=== PATIENT | female | born 1995 | race Caucasian/White ===

== ENCOUNTER 2016-10-24 04:56 | Emergency (ER) | payer MEDICAID ==
[~2016-10-24] VITALS: Ht 170.2 cm; Wt 56.7 kg
[2016-10-24 05:11] VITALS: BP 110/58; PULSE 118; RESP 12; TEMP 100.2; O2SAT 96
[2016-10-24 05:30] VITALS: BP 110/58; PULSE 118; RESP 18; TEMP 100.2; O2SAT 96
[2016-10-24] MEDS ORDERED: ACETAMINOPHEN 325 MG TAB PO ONE (05:45)
[2016-10-24] MEDS ORDERED: SODIUM CHLOR 0.9% 1000 ML INJ 1,000 ML IV ONE (05:45)
--- NOTE | 2016-10-24 06:17 | RADRPT ---
EXAM DATE/TIME: 10/24/2016 05:41 [place] COMPARISON: No previous studies available for comparison. INDICATIONS : Fever, cough. MEDICAL HISTORY : None. SURGICAL HISTORY : None. ENCOUNTER: Initial ACUITY: 2 days PAIN SCORE: 0/10 LOCATION: Bilateral chest FINDINGS: PA and lateral views of the chest demonstrate the lungs to be symmetrically aerated without evidence of mass, infiltrate or effusion. The cardiomediastinal contours are unremarkable. Osseous structure s are intact. CONCLUSION: No acute disease. There is no evidence of pneumonia. Tod Frederick MD on October 24, 2016 at 6:15 Board Certified Radiologist. This report was verified electronically.
[2016-10-24 06:41] LABS: AUTOMATED NEUTROPHIL # 12.8 TH/MM3 (1.8-7.7); BASOPHIL % 0.3 % (0.0-2.0); EOSINOPHIL % 0.2 % (0.0-4.0); HEMATOCRIT 37.1 % (35.0-46.0); LYMPH % 4.4 % (9.0-44.0); LYMPHOCYTE # 0.6 TH/MM3 (1.0-4.8); MEAN CELL VOLUME 90.4 FL (80.0-100.0); MEAN CORPUSCULAR HEMOGLOBIN 30.3 PG (27.0-34.0); MEAN CORPUSCULAR HGB CONC 33.5 % (32.0-36.0); MONO % 5.8 % (0.0-8.0); NEUT % 89.3 % (16.0-70.0); PLATELET COUNT 148 TH/MM3 (150-450); RED CELL DISTRIBUTION WIDTH 12.1 % (11.6-17.2); WHITE BLOOD COUNT 14.2 TH/MM3 (4.0-11.0)
[2016-10-24 06:42] LABS: BLOOD, URINE NEG (NEG); GLUCOSE,URINE NEG (NEG); KETONE, URINE NEG (NEG); METHOD OF COLLECTION CLEAN CATCH; NITRITE,URINE NEG (NEG)
[2016-10-24 06:43] LABS: URINE COLOR STRAW (YELLW/STRAW)
[2016-10-24 06:46] LABS: COMMENT (UR) CULT NOT INDICATED; CULTURE IF INDICATED CULT NOT INDICATED; WBC, URINE 0-2 /hpf (0-5)
[2016-10-24 06:49] LABS: HEMO FLAGS DIFF FINAL
[2016-10-24] MEDS ORDERED: AMOX875T2 PO (06:55)
[2016-10-24 06:56] LABS: POTASSIUM 3.6 MEQ/L (3.5-5.1)
--- NOTE | 2016-10-24 06:56 | PD ---
HPI Chief Complaint: Fever Time Seen by Provider: 05:22 Travel History International Travel<30 days: No Contact w/Intl Traveler<30days: No Traveled to known affect area: No History of Present Illness HPI Patient is a 20-year-old female comes in complaining of fever and sore throat. She says it started last night. She has been taking ibuprofen, with some relief of her throat pain. She says she's had some slight nasal congestion and cough. She denies any shortness of breath. She denies any nausea or vomiting or abdominal pain. She has no medical problems. She denies drug use. [facility] Past Medical History Medical History: Denies Significant Hx Tetanus Vaccination: < 5 Years Influenza Vaccination: No ?: Unknown Past Surgical History Surgical History: No Previous Surgery Social History Alcohol Use: No Tobacco Use: No Substance Use: No Allergies-Medications (Allergen,Severity, Reaction): Coded Allergies: No Known Allergies (Unverified , 10/24/16) Reported Meds & Prescriptions Reported Meds & Active Scripts Active Amoxicillin-Clavulanate 875-125 mg Tab 875 Mg PO BID 10 Days not for use in CrCl <30 mL/minute Review of Systems Except as stated in HPI: all other systems reviewed are Neg General / Constitutional: Positive: Fever HENT: Positive: Sore Throat, Congestion, No: Headaches Cardiovascular: No: Chest Pain or Discomfort Respiratory: Positive: Cough, No: Shortness of Breath Gastrointestinal: No: Nausea, Vomiting, Abdominal Pain Genitourinary: No: Dysuria Musculoskeletal: No: Myalgias, Edema Skin: No Rash, No Change in Pigmentation Neurologic: No: Weakness, Dizziness Physical Exam Narrative GENERAL: Awake and alert, no acute distress. SKIN: Focused skin assessment warm/dry. HEAD: Atraumatic. Normocephalic. EYES: Pupils equal and round. No scleral icterus. No injection or drainage. ENT: No tonsillar swelling or exudates. Slight erythema of the posterior pharynx. Mucous membranes pink and moist. NECK: Trachea midline. No JVD. CARDIOVASCULAR: Tachycardia. No murmur appreciated. RESPIRATORY: No accessory muscle use. Clear to auscultation. Breath sounds equal bilaterally. GASTROINTESTINAL: Abdomen soft, non-tender, nondistended. MUSCULOSKELETAL: No obvious deformities. No clubbing. No cyanosis. No edema. NEUROLOGICAL: Awake and alert. No obvious cranial nerve deficits. Motor grossly within normal limits. Normal speech. PSYCHIATRIC: Appropriate mood and affect; insight and judgment normal. Data Data Last Documented VS Vital Signs Date Time Temp Pulse Resp B/P Pulse Ox O2 Delivery O2 Flow Rate FiO2 10/24/16 05:37 118 18 96 Room Air 10/24/16 05:30 100.2 110/58 Orders Iv Access Insert/Monitor (10/24/16 05:36) Complete Blood Count With Diff (10/24/16 05:36) Basic Metabolic Panel (Bmp) (10/24/16 05:36) Group A Rapid Strep Screen (10/24/16 05:36) Chest, Pa & Lat (10/24/16 ) Sodium Chlor 0.9% 1000 Ml Inj (Ns 1000 M (10/24/16 05:45) Urinalysis - C+S If Indicated (10/24/16 05:36) Ed Urine Pregnancytest Poc (10/24/16 05:36) Acetaminophen (Tylenol) (10/24/16 05:45) Strep Culture (Group A) (10/24/16 05:54) Labs Laboratory Tests Test 10/24/16 06:15 White Blood Count 14.2 TH/MM3 Red Blood Count 4.10 MIL/MM3 Hemoglobin 12.4 GM/DL Hematocrit 37.1 % Mean Corpuscular Volume 90.4 FL Mean Corpuscular Hemoglobin 30.3 PG Mean Corpuscular Hemoglobin 33.5 % Concent Red Cell Distribution Width 12.1 % Platelet Count 148 TH/MM3 Mean Platelet Volume 9.2 FL Neutrophils (%) (Auto) 89.3 % Lymphocytes (%) (Auto) 4.4 % Monocytes (%) (Auto) 5.8 % Eosinophils (%) (Auto) 0.2 % Basophils (%) (Auto) 0.3 % Neutrophils # (Auto) 12.8 TH/MM3 Lymphocytes # (Auto) 0.6 TH/MM3 Monocytes # (Auto) 0.8 TH/MM3 Eosinophils # (Auto) 0.0 TH/MM3 Basophils # (Auto) 0.0 TH/MM3 CBC Comment DIFF FINAL Differential Comment Urine Collection Type CLEAN CATCH Urine Color STRAW Urine Turbidity CLEAR Urine pH 6.0 Urine Specific Startex 1.002 Urine Protein NEG mg/dL Urine Glucose (UA) NEG mg/dL Urine Ketones NEG mg/dL Urine Occult Blood NEG Urine Nitrite NEG Urine Bilirubin NEG Urine Leukocyte Esterase NEG Urine WBC 0-2 /hpf Microscopic Urinalysis Comment CULT NOT INDICATED Sodium Level 140 MEQ/L Potassium Level 3.6 MEQ/L Chloride Level 108 MEQ/L Carbon Dioxide Level 24.6 MEQ/L Anion Gap 7 MEQ/L Blood Urea Nitrogen 16 MG/DL Creatinine 0.74 MG/DL Estimat Glomerular Filtration 99 ML/MIN Rate Random Glucose 110 MG/DL Calcium Level 8.7 MG/DL [facility] Medical Decision Making Medical Screen Exam Complete: Yes Emergency Medical Condition: Yes Medical Record Reviewed: Yes Differential Diagnosis URI versus strep pharyngitis versus UTI versus pneumonia Narrative Course Patient is a 20-year-old female who comes in complaining of fever and sore throat. Exam shows some erythema of the posterior pharynx. IV established, labs sent. Patient given IV fluids, Tylenol. Labs show a white blood cell count of 14.2. Urine is negative for UTI. Chest x -ray performed shows no evidence of pneumonia. Patient feels better after Tylenol and IVF. Vitals improved. Will be discharged with prescription for Augmentin for pharyngitis. Advised to follow up with her doctor. Advised to return to the ED as needed for any worsening symptoms. Diagnosis Primary Impression: Pharyngitis Qualified Code: J02.9 - Pharyngitis, unspecified etiology Patient Instructions: General Instructions, Pharyngitis (ED) Additional Instructions: Follow-up with her primary care doctor. Take all of your antibiotics. Take Tylenol or ibuprofen as needed for fever or pain. Return to the emergency department as needed for any worsening symptoms. Scripts Amoxicillin-Clavulanate 875-125 mg [id number] Mg PO BID 10 Days Ref 0 not for use in CrCl <30 mL/minute Prov:Zoraida Nielsen MD 10/24/16 Disposition: 01 DISCHARGE HOME Condition: Stable Zoraida Nielsen MD Oct 24, 2016 06:55
[2016-10-24 06:59] LABS: BICARBONATE 24.6 MEQ/L (21.0-32.0)
[2016-10-24 07:15] VITALS: PULSE 84; RESP 16; O2SAT 98
== END 2016-10-24 07:51 | disposition home or self-care (01) ==
LOC: PHED 04:56
DX: J02.9 Acute pharyngitis, unspecified (principal)
CPT/HCPCS: 71020; 80048; 81001; 84703; 85025; 87081; 87880; 96360; 99284; J7030